=== PATIENT | male | born 1975 | race Caucasian/White ===

== ENCOUNTER 2024-11-18 16:19 | Emergency (ER) | payer OTHER ==
[~2024-11-18] VITALS: Ht 185.4 cm; Wt 117.9 kg
[2024-11-18 16:23] VITALS: BP 169/112; PULSE 101; RESP 20; TEMP 98.4; O2SAT 96
[2024-11-18] MEDS ORDERED: TORADOL ONE (16:37)
[2024-11-18] MEDS ORDERED: NS 1000ML 1,000 ML ONE (16:37)
[2024-11-18] MEDS: NS 1000ML 1,000 ML IV STA (16:41)
[2024-11-18] MEDS: TORADOL IV STA (16:41)
[2024-11-18 16:58] LABS: BASOPHIL # 0.1 10^3/uL (0.0-0.1); BASOPHIL % 1.2 % (0.2-1.2); EOSINOPHIL # 0.2 10^3/uL (0.0-0.2); EOSINOPHIL % 1.5 % (0.0-5.0); HEMATOCRIT(ML) 44.9 % (37.0-53.0); IG % 0.40 % (0.00-0.50); LYMPHOCYTES # 2.07 10^3/uL1 (1.0-4.8); LYMPHOCYTES % 20.2 % (24.0-44.0); MEAN CORP HGB 30.2 pg (26-34); MEAN CORP HGB CONCENTRATION 33.9 g/dL (33-36.5); MEAN CORP VOLUME 89.3 fL (78-100); MONOCYTES # 0.6 10^3/uL (0.3-0.8); MONOCYTES % 6.0 % (5.0-12.0); NEUTROPHIL # 7.3 10^3/uL (1.8-7.7); NEUTROPHILS % 70.7 % (41.0-85.0); RED BLOOD CELL 5.03 10^6/uL (4.50-5.90); RED CELL DISTRIBUTION WIDTH 12.9 % (11.5-14.5); WHITE BLOOD CELL 10.3 10^3/uL (4.5-11.0)
[2024-11-18 17:04] LABS: LEUKOCYTE ESTERASE ,URINE NEGATIVE (NEGATIVE); NITRATE,URINE NEGATIVE (NEGATIVE)
[2024-11-18 17:05] LABS: APPEARANCE,URINE CLEAR; UA COLOR YELLOW
[2024-11-18 17:09] LABS: ALANINE AMINOTRANSFERASE(ML) 28.0 U/L (12-78); ALBUMIN(ML) 4.2 g/dL (3.4-5.0); CREATININE SERUM 0.94 mg/dL (0.59-1.40); EST GFR, NON-AA 85.3 (>/=60); TROPONIN I HIGH SENSITIVITY 5.0 ng/L (0-75)
[2024-11-18 17:20] VITALS: BP 157/88; PULSE 90; RESP 18; O2SAT 98
[2024-11-18] MEDS ORDERED: NS 100ML 100 ML IV ONE (17:59)
[2024-11-18] MEDS: ZOSYN 3.375 GM 3.375 GM in NS 100ML 100 ML IV SCH (18:05)
[2024-11-18 18:19] VITALS: BP 149/89; PULSE 88; RESP 18; O2SAT 98
[2024-11-18 19:17] VITALS: BP 161/103; PULSE 99; RESP 18; O2SAT 98
[2024-11-18] MEDS ORDERED: ZOFRAN ONE (20:07)
[2024-11-18] MEDS ORDERED: PROTONIX IV IV ONE (20:07)
[2024-11-18] MEDS ORDERED: MORPHINE SULFATE ONE (20:08)
[2024-11-18] MEDS: PROTONIX IV IV STA (20:15)
[2024-11-18] MEDS: ZOFRAN IV STA (20:15)
[2024-11-18] MEDS: MORPHINE SULFATE IV STA (20:16)
[2024-11-18 20:23] VITALS: BP 167/91; PULSE 90; RESP 18; O2SAT 96
== END 2024-11-18 20:50 | disposition short-term general hospital (02) ==
LOC: ER 16:19
DX: K66.8 Other specified disorders of peritoneum (principal); K63.1 Perforation of intestine (nontraumatic); E66.9 Obesity, unspecified
CPT/HCPCS: 99285; 74176; 96365; 96375; 96366; 71045; 96361; 81003; 80053; 85025; 36415; 84484; 87040 ×2; 83690; 93005; J1885; J2270; J7030; J2405; J2543